=== PATIENT | male | born 1960 | race Asian ===

== ENCOUNTER 2021-10-07 09:04 | Emergency (ER) | payer MEDICAID ==
[~2021-10-07] VITALS: Ht 167.6 cm; Wt 60.3 kg
[2021-10-07 09:10] VITALS: BP 135/78
[2021-10-07 10:00] VITALS: BP 135/78
--- NOTE | 2021-10-07 10:01 | NUR ---
Patient discharged with v/s stable. Written and verbal after care instructions given and explained. Patient verbalized understanding. Ambulatory with steady gait. All questions addressed prior to discharge. Advised to follow up with PMD.
== END 2021-10-07 10:01 | disposition home or self-care (01) ==
LOC: MED 09:04
DX: T78.40XA Allergy, unspecified, initial encounter (principal); K13.0 Diseases of lips; F17.200 Nicotine dependence, unspecified, uncomplicated; X58.XXXA Exposure to other specified factors, initial encounter
CPT/HCPCS: 99282